=== PATIENT | female | born 1985 | race Caucasian/White ===

== ENCOUNTER 2017-01-01 14:58 | Inpatient (IN) | payer BC ==
[~2017-01-01] VITALS: Ht 165.1 cm; Wt 92.3 kg
[~2017-01-01 14:58] MED LIST: MOTRIN 600600 MG/TAB PO; PERCOCET 325 MG1 TA2 PO; PRENATAL1 TA1 PO
[2017-01-26] VITALS (36 sets, daily range): BP systolic 104–154; BP diastolic 57–89; PULSE 60–96; TEMP 97.5–98.5
[2017-01-26 08:16] LABS: BASO % 0.3 % (0.0-2.0); EOS # 0.1 (0.0-0.7); EOS % 0.9 % (0-4.0); GRAN # 4.6 (1.4-6.5); GRAN % 67.6 % (42.2-75.2); LYMPH # 1.6 (1.2-3.4); LYMPH % 23.6 % (20.0-51.0); MEAN CELL VOLUME 90 fl (80.0-100.0); MEAN CORPUSCULAR HGB CONC 33 g/dl (33.0-37.0); MEAN PLATELET VOLUME 11.5 fl (7.4-10.4); MONO # 0.5 (0.1-0.6); MONO % 6.9 % (1.7-9.3); PLATELET COUNT 184 K/mm3 (130-400); RED BLOOD COUNT 3.53 M/mm3 (4.10-5.30); REDCELL DISTRIBUTION WIDTH-CV 13.8 % (11.5-14.5); WHITE BLOOD COUNT 6.9 K/mm3 (4.8-10.8)
[2017-01-26 08:18] LABS: HEMATOCRIT 31.7 % (37.0-47.0); HEMOGLOBIN 10.5 g/dl (12.5-16.0); MEAN CORPUSCULAR HEMOGLOBIN 30 pg (27.0-31.0)
[2017-01-27 03:35] VITALS: BP 108/58; PULSE 81; TEMP 98.4
[2017-01-27 07:43] VITALS: BP 113/67; PULSE 78; TEMP 98.1
[2017-01-27 16:30] VITALS: BP 110/73; PULSE 82; TEMP 98.2
[2017-01-27 22:05] VITALS: BP 130/78; PULSE 88; TEMP 98.8
[2017-01-28 08:00] VITALS: BP 120/79; PULSE 74; TEMP 98.1
[2017-01-28] MEDS ORDERED: IBU800 M1 PO (08:29)
[2017-01-28] MEDS ORDERED: PERCOCET 325 MG1 TA2 PO (08:30)
== END 2017-01-28 12:15 | disposition home or self-care (01) | DRG 775 ==
LOC: LDR 01-26 06:43 → OB 01-26 07:00 → LDR 01-26 07:00 → OB 01-26 17:30 → EDSTATUS 01-31 06:42 → LDRO 01-31 14:57
PROVIDERS: Obstetrics & Gynecology
PROC: 10E0XZZ Delivery of Products of Conception, External Approach (ICD-10-PCS; principal; 2017-01-26)
PROC: 0HQ9XZZ Repair Perineum Skin, External Approach (ICD-10-PCS; 2017-01-26)
DX: O70.0 First degree perineal laceration during delivery (principal); Z3A.39 39 weeks gestation of pregnancy; Z37.0 Single live birth
CPT/HCPCS: J2590; J7120

== ENCOUNTER 2020-04-27 07:36 | Inpatient (IN) | payer OTHER ==
[2020-04-27] VITALS (32 sets, daily range): BP systolic 106–135; BP diastolic 49–82; PULSE 73–97; TEMP 98–98.9
[~2020-04-27] VITALS: Ht 165.1 cm; Wt 98.2 kg
[~2020-04-27 07:36] MED LIST changes: +IBU800 M1 PO
--- NOTE | 2020-04-27 07:40 | NUR ---
0740- G6L4, 39.0 patient arrives on unit for IOL. Ambulatory to room 3. Oriented to room and plan of care. Changes to gown. Patient reports normal movement, denies regular contractions, denies LOF or VB. 0755- IV started using clean technique. Routine labs obtained via IV site. Consent forms explained and signed. Admission assessment completed. 0807- Dr. Herzog to patient bedside. Reviews POC. SVE by Dr. Herzog /-2. AROM at this time for small amount of clear fluid. Iris care provied and patient repostioned wedge left. Patient requesting epidural. Okay per Dr. Herzog. Toney Ferrer AUDIT CLERK notified. 0835- Patient positioned on edge of bed for epidural placement. Toney Ferrer CRNA at bedside for epidural placement. Time out performed. 0845- Single shot and epidural placed by Toney Ferrer CRNA. 0850- Patient repositioned left side. Reviewed safty precautions. Call light within reach.
[2020-04-27 08:10] LABS: BASO % 0.1 % (0.0-2.0); EOS # 0.1 (0.0-0.7); EOS % 1.1 % (0-4.0); GRAN % 72.3 % (42.2-75.2); HEMATOCRIT 33.2 % (37.0-47.0); HEMOGLOBIN 11.3 g/dl (12.5-16.0); LYMPH # 1.5 (1.2-3.4); LYMPH % 18.6 % (20.0-51.0); MEAN CELL VOLUME 90 fl (80.0-100.0); MEAN CORPUSCULAR HEMOGLOBIN 31 pg (27.0-31.0); MEAN CORPUSCULAR HGB CONC 34 g/dl (33.0-37.0); MEAN PLATELET VOLUME 10.4 fl (7.4-10.4); MONO # 0.6 (0.1-0.6); MONO % 7.1 % (1.7-9.3); PLATELET COUNT 211 K/mm3 (130-400); RED BLOOD COUNT 3.68 M/mm3 (4.10-5.30); REDCELL DISTRIBUTION WIDTH-CV 13.8 % (11.5-14.5)
--- NOTE | 2020-04-27 12:22 | NUR ---
1218- Patient reports increased rectal pressure. SVE 6/90/-2. Iris care provied and patient wedge left. 1220- Dr. Herzog updated on patient. 1222- Patient with increased rectal pressure and recurrent variable decels to 80bmp with spont return to baseline. SVE 7-8/90/-2. Will cont to monitor. 1230- SVE 9/100/0. Dr. Herzog called and requested at bedside for delivery. 1239- Dr. Herzog at bedside for delivery. Patient repositioned in footplates. Instructed on pushing techniques. 1243- SVE 10cm per Dr. Herzog. Charles catheter removed. Iris care provided by Dr. Herzog. 1245- Patient begins to push with contractions. Strong effort noted. 1251- Spontaneous vaginal delivery of viable male . Nares and mouth bulb suctioned by Dr. Herzog. Keller to mothers chest where dried and stimulated by nursery RN. Care of assumed by Gregory Moise RN. Pitocin paused. 1255- Spontaneous delivery of placenta. Examined and intact. pitocin infusing at 333ml/hr. Vaginal laceration repaied by Dr. Herzog. 1300- Iris care provided and patient repositioned in bed. Fundus firm, midline, and bleeding minimal. Pads changed. Saftey instructions reviewed. Patient resting with call light within reach.
--- NOTE | 2020-04-27 13:30 | NUR ---
1330- Epidural catheter removed by Toney Ferrer CRNA.
--- NOTE | 2020-04-27 15:10 | NUR ---
1510- Patient assisted to edge of bed. Denies any dizziness or lightheadedness. Ambulatory to bathroom with assist x1. Voids without difficulty. Iris care provided, pads changed, and clean gown on. Ambulatry to room 214 with stand by assist. Oriented to room and plan of care. Denies any needs at this time. Resting peacefully with call light within reach.
[2020-04-28 00:30] VITALS: BP 123/52; PULSE 83; TEMP 98.7
[2020-04-28 05:00] VITALS: BP 129/74; PULSE 78; TEMP 98.3
[2020-04-28 09:02] VITALS: BP 131/74; PULSE 80; TEMP 97.8
--- NOTE | 2020-04-28 10:37 | NUR ---
Initial visit; Mom thanked Public Relations Account Executive for offering congratulations and God's blessings for the of her son. Public Relations Account Executive thanked patient for choosing [facility]/via [facility].
[2020-04-28] MEDS ORDERED: IBU800 M1 PO (16:14)
[2020-04-28] MEDS ORDERED: PERCOCET 325 MG1 TA2 PO (16:14)
== END 2020-04-28 17:00 | disposition home or self-care (01) | DRG 806 ==
LOC: LDR 07:36 → OB 14:26
PROVIDERS: ADMIT Obstetrics & Gynecology
PROC: 10E0XZZ Delivery of Products of Conception, External Approach (ICD-10-PCS; principal; 2020-04-27)
PROC: 10907ZC Drainage of Amniotic Fluid, Therapeutic from Products of Conception, Via Natural or Artificial Opening (ICD-10-PCS; 2020-04-27)
PROC: 0UQGXZZ Repair Vagina, External Approach (ICD-10-PCS; 2020-04-27)
PROC: 3E033VJ Introduction of Other Hormone into Peripheral Vein, Percutaneous Approach (ICD-10-PCS; 2020-04-27)
DX: O69.81X0 Labor and delivery complicated by cord around neck, without compression, not applicable or unspecified (principal); O71.4 Obstetric high vaginal laceration alone; Z37.0 Single live birth; Z3A.39 39 weeks gestation of pregnancy
CPT/HCPCS: J2590; J2795; J7120